=== PATIENT | male | born 1995 | race American Indian/Alaskan Native ===

== ENCOUNTER 2018-06-05 12:27 | Emergency (ER) | payer OTHER ==
[2018-06-05 12:38] VITALS: BP 121/70
--- NOTE | 2018-06-05 12:38 | Emergency Department Report ---
Blank Doc - Documentation Documentation: This is a 22-year-old male that presents with nausea vomiting and bodyaches. This initial assessment/diagnostic orders/clinical plan/treatment(s) is/are subject to change based on patient's health status, clinical progression and re- assessment by fellow clinical providers in the ED. Further treatment and workup at subsequent clinical providers discretion. Patient/guardians urged not to elope from the ED as their condition may be serious if not clinically assessed and managed. Initial orders include: 1- Patient sent to [facility] for further evaluation and treatment 2- labs
--- NOTE | 2018-06-05 13:15 | Emergency Department Report ---
Chief Complaint: Medical Clearance Stated Complaint: VOMITTING Time Seen by Provider: 06/05/18 12:37 - HPI History of Present Illness: Joel is a healthy 22-year-old male presents with nausea vomiting bodyaches. He was concerned for tape months. His girlfriend travels back and forth between [facility] and [facility]. No evidence of acute emergent condition. Medical screening exam performed and completed. Discharged home; referral to outside clinic provided - Exam Vital Signs: Vital Signs 06/05/18 12:36 Temperature 98.3 F Pulse Rate 73 Respiratory 16 Rate Blood Pressure 121/70 O2 Sat by Pulse 98 Oximetry MSE screening note: Focused history and physical exam performed. Due to findings the following was ordered: ED Disposition for MSE Clinical Impression: Vomiting Disposition: Z- MED SCREENING EXAM-LEFT Is pt being admited?: No Does the pt Need Aspirin: No Condition: Stable Referrals: [facility] [Outside] - 3-5 Days Forms: Work/School Release Form(ED)
== END 2018-06-05 13:53 | disposition left against medical advice (07) ==
LOC: ED 12:27
DX: R11.2 Nausea with vomiting, unspecified (principal)
CPT/HCPCS: 99282